=== PATIENT | female | born 1945 | race Caucasian/White ===

== ENCOUNTER 2024-12-28 18:32 | Emergency (ER) | payer MEDICARE, OTHER ==
[~2024-12-28] VITALS: Ht 162.6 cm; Wt 70.8 kg
[2024-12-28 18:55] VITALS: TEMP 98.4
[2024-12-28] MEDS: IV NS 0.9% 1,000 ML BAG IV ONE ×2 (19:00→20:32)
[2024-12-28 19:04] LABS: PLATELET COUNT (AUTO) 404 K/uL (150-450); RED BLOOD CELL COUNT(AUTO) 4.19 MIL/uL (4.0-5.2); RED CELL DISTRIBUTION WIDTH 14.8 % (11.5-15.0); WHITE BLOOD COUNT (AUTO) 7.8 K/uL (4.3-11.0)
[2024-12-28 19:09] LABS: CALCIUM, SERUM 9.3 mg/dL (8.5-10.1); CREATININE 0.9 mg/dL (0.6-1.3); SODIUM SERUM 141 mmol/L (136-145); UREA NITROGEN, BLOOD 22 mg/dL (7-18)
[2024-12-28 19:15] LABS: ASPARTATE AMINOTRANSFERASE 21 U/L (15-37); TOTAL PROTEIN, SERUM 7.5 g/dL (6.4-8.2)
[2024-12-28 19:50] LABS: BLOOD, URINE 1+ Ery/uL (NEGATIVE); LEUKOCYTE ESTERASE ,URINE 1+ (NEGATIVE); NITRITE, URINE NEGATIVE (NEGATIVE); UGLUCOSE NEGATIVE (NEGATIVE)
[2024-12-28 19:52] LABS: APPEARANCE,URINE CLOUDY (CLEAR)
[2024-12-28 20:14] LABS: ADD URINE CULTURE YES
[2024-12-28] MEDS ORDERED: Z GUARD REMEDY 4 OZ OINT TP PRN (20:30)
[2024-12-28] MEDS ORDERED: MAG HYDROX/AL HYDROX/SIMETH 30 ML UDC PO PRN (20:30)
[2024-12-28] MEDS ORDERED: MAGNESIUM HYDROXIDE 30 ML UDC PO PRN (20:30)
[2024-12-28] MEDS ORDERED: ONDANSETRON HCL/PF 4 MG/2 ML VIAL IVP PRN (20:30)
[2024-12-28] MEDS ORDERED: ACETAMINOPHEN 325 MG TABLET PO PRN (20:30)
[2024-12-28] MEDS ORDERED: CEFTRIAXONE 1GM BAG (ER ONLY) 50 ML IV ONE (21:13)
[2024-12-28] MEDS: CEFTRIAXONE 1 G in IV D5W 50 ML IV ONE (21:15)
[2024-12-28 21:37] VITALS: BP 132/72; O2SAT 96
== END 2024-12-28 21:51 | disposition admitted as inpatient to this hospital (09) ==
LOC: ER 18:35
DX: N39.0 Urinary tract infection, site not specified (principal); E86.0 Dehydration; E78.5 Hyperlipidemia, unspecified; F03.90 Unspecified dementia, unspecified severity, without behavioral disturbance, psychotic disturbance, mood disturbance, and anxiety; I11.0 Hypertensive heart disease with heart failure; E63.9 Nutritional deficiency, unspecified; I48.91 Unspecified atrial fibrillation; Z86.73 Personal history of transient ischemic attack (TIA), and cerebral infarction without residual deficits; R62.7 Adult failure to thrive; I67.9 Cerebrovascular disease, unspecified; I50.9 Heart failure, unspecified
CPT/HCPCS: 99285; 96365; 71045; 96361; 93005; 85025; 80048; 87040 ×2; 87086; 83605; 80076; 81001; 36415; 84443; 84484; 82962; J0696; J7060